=== PATIENT | male | born 2000 | race Caucasian/White ===

== ENCOUNTER 2022-06-15 12:00 | Emergency (ER) | payer OTHER ==
[~2022-06-15] VITALS: Ht 180.3 cm; Wt 74.8 kg
--- NOTE | 2022-06-15 12:40 | ED GU-Male ---
General Chief Complaint: - Reproductive Stated Complaint: SORE THROAT/CHEST PAIN/PAIN WHEN URINATING Nursing Triage Note: PT AMB TO TRIAGE WITH COMPLAINT OF BURNING ON URINATION. STATES STARTED A WEEK AGO. HAS BEEN SEEN TWICE, GIVEN DOXYCYCLINE. AND WAS SEEN AT [facility] AND TESTED NEGATIVE FOR STDS. HAS HAD A NEGATIVE URINE CULTURE ALSO. FINISHED DOXY WITH NO IMPROVEMENT IN SYMPTOMS. HAS ALSO HAD BODY ACHES, SORE THROAT, AND NIGHT SWEATS. Source: patient Exam Limitations: no limitations (CABRERA THIBODEAUX) History of Present Illness Date Seen by Provider: Jun 15, 2022 Time Seen by Provider: 12:25 Initial Comments Pradip Bennett is a 19 year old male who presents with sore throat, chest pain, and dysuria. The patient states the dysuria began on 06/07. On 06/09 the patient reports onset of a sore throat. On 06/14 patient reports onset of chest pain. He has been evaluated three times, at a walk-in care in [place], in [place], [place], and at the [facility]. He has been treated with doxycycline and cefuroxime with no improvement. Patient states the symptoms are worsening. He has been alternating tylenol and ibuprofen with little aid. P atient reports malaise, myalgia, swelling of his gums, aches, and diaphoresis. Denies cough, congestion, nausea, vomiting, abdominal pain, or hematuria. Patient states he has been tested for Flu, COVID, strep, mono, and STIs with negative results. Patient also states that he has had two UAs, both with negative results. The patient states his mother gave him two pills of Bactrim, and he states he noticed some improvement with this. Timing/Duration: week (onset over one week ago) Severity/Quality: moderate Location: urethral Radiation: none Activities at Onset: none Prior Genitourinary Problems: none Sexual [place] History: single partner Modifying Factors: Improves With Analgesics; Worsens With Urinating Associated Symptoms: dysuria, fever/chills (CABRERA THIBODEAUX) Allergies and Home Medications Allergies Coded Allergies: No Known Drug Allergies (Unverified , 06/15/22) Patient Home Medication List Home Medication List Reviewed: Yes (CABRERA THIBODEAUX) Cefuroxime Axetil (Cefuroxime) 500 Mg Tablet, 500 MG PO BID Prescribed by: BELEN CAMPO on 06/15/22 1411 Review of Systems Review of Systems Constitutional: chills, fever, malaise EENTM: mouth swelling (swelling of gums), throat pain Respiratory: no symptoms reported Cardiovascular: chest pain Gastrointestinal: no symptoms reported Genitourinary: dysuria, frequency; denies hematuria Musculoskeletal: muscle pain Skin: no symptoms reported Psychiatric/Neurological: No Symptoms Reported Endocrine: No Symptoms Reported Hematologic/Lymphatic: No Symptoms Reported (CABRERA THIBODEAUX) All Other Systemes Reviewed Negative Unless Noted: Yes (CABRERA THIBODEAUX) Past Kzzhrdo-Rzzcxw-Zkqawj Hx Patient Social History Tobacco Use?: No Use of E-Cig and/or Vaping dev: No Substance use?: No Alcohol Use?: Yes Alcohol Frequency: Once in a while Pt feels they are or have been: No (CABRERA THIBODEAUX) Past Medical History Surgeries: No (CABRERA THIBODEAUX) Physical Exam Vital Signs Vital Signs - First Documented 06/15/22 12:09 Temp 37.2 Pulse 105 Resp 22 B/P (MAP) 148/95 (112) Pulse Ox 96 O2 Delivery Room Air (BELEN PATRICIA MD) Vital Signs Capillary Refill : (CABRERA THIBODEAUX) Height, Weight, BMI Height: '" Weight: lbs. oz. kg; 23.00 BMI Method: General Appearance: WD/WN, no apparent distress HEENT: TMs normal, pharyngeal erythema, tonsillar exudate Neck: lymphadenopathy (R) (submandibular adenopathy), lymphadenopathy (L) (submandibular adenopathy) Cardiovascular: normal peripheral pulses, regular rate, rhythm, no murmur Respiratory: lungs clear, normal breath sounds, no respiratory distress, no accessory muscle use Gastrointestinal: non tender, soft Neurologic/Psychiatric: alert, normal mood/affect Skin: normal color, warm/dry Lymphatic: other (bilateral submandibular adenopathy) (CABRERA THIBODEAUX) Progress/Results/Core Measures Suspected Sepsis SIRS Temperature: Pulse: 105 Respiratory Rate: 22 Laboratory Tests 06/15/22 12:35: White Blood Count 9.9 Blood Pressure 148 /95 Mean: 112 Laboratory Tests 06/15/22 12:35: Creatinine 1.35H, Platelet Count 221, Total Bilirubin 0.3 (CABRERA THIBODEAUX) Results/Orders Lab Results Laboratory Tests Test 06/15/22 12:35 06/15/22 12:42 06/15/22 12:58 Range/Units White Blood Count 9.9 4.3-11.0 10^3/uL Red Blood Count 5.37 4.30-5.52 10^6/uL Hemoglobin 16.2 13.3-17.7 g/dL Hematocrit 49 40-54 % Mean Corpuscular Volume 91 80-99 fL Mean Corpuscular Hemoglobin 30 25-34 pg Mean Corpuscular Hemoglobin Concent 33 32-36 g/dL Red Cell Distribution Width 12.5 10.0-14.5 % Platelet Count 221 130-400 10^3/uL Mean Platelet Volume 10.0 9.0-12.2 fL Immature Granulocyte % (Auto) 0 % Neutrophils (%) (Auto) 72 42-75 % Lymphocytes (%) (Auto) 18 12-44 % Monocytes (%) (Auto) 8 0-12 % Eosinophils (%) (Auto) 1 0-10 % Basophils (%) (Auto) 1 0-10 % Neutrophils # (Auto) 7.1 1.8-7.8 10^3/uL Lymphocytes # (Auto) 1.8 1.0-4.0 10^3/uL Monocytes # (Auto) 0.8 0.0-1.0 10^3/uL Eosinophils # (Auto) 0.1 0.0-0.3 10^3/uL Basophils # (Auto) 0.1 0.0-0.1 10^3/uL Immature Granulocyte # (Auto) 0.0 0.0-0.1 10^3/uL Erythrocyte Sedimentation Rate 9 0-15 MM/HR Sodium Level 138 135-145 MMOL/L Potassium Level 4.4 3.6-5.0 MMOL/L Chloride Level 104 98-107 MMOL/L Carbon Dioxide Level 23 21-32 MMOL/L Anion Gap 11 5-14 MMOL/L Blood Urea Nitrogen 11 7-18 MG/DL Creatinine 1.35 H 0.60-1.30 MG/DL Estimat Glomerular Filtration Rate 76 BUN/Creatinine Ratio 8 Glucose Level 94 70-105 MG/DL Calcium Level 9.5 8.5-10.1 MG/DL Corrected Calcium 9.3 8.5-10.1 MG/DL Total Bilirubin 0.3 0.1-1.0 MG/DL Aspartate Amino Transf (AST/SGOT) 26 5-34 U/L Alanine Aminotransferase (ALT/SGPT) 26 0-55 U/L Alkaline Phosphatase 65 40-136 U/L C-Reactive Protein High Sensitivity 10.96 H 0.00-0.50 MG/DL Total Protein 7.8 6.4-8.2 GM/DL Albumin 4.3 3.2-4.5 GM/DL Monoscreen NEGATIVE NEGATIVE Influenza Type A (RT-PCR) Not Detected Not Detecte Influenza Type B (RT-PCR) Not Detected Not Detecte SARS-CoV-2 RNA (RT-PCR) Not Detected Not Detecte Urine Color YELLOW Urine Clarity CLEAR Urine pH 6.0 5-9 Urine Specific [place] 1.025 H 1.016-1.022 Urine Protein NEGATIVE NEGATIVE Urine Glucose (UA) NEGATIVE NEGATIVE Urine Ketones 1+ H NEGATIVE Urine Nitrite NEGATIVE NEGATIVE Urine Bilirubin NEGATIVE NEGATIVE Urine Urobilinogen 0.2 < = 1.0 MG/DL Urine Leukocyte Esterase NEGATIVE NEGATIVE Urine RBC (Auto) NEGATIVE NEGATIVE Urine RBC NONE /HPF Urine WBC RARE /HPF Urine Squamous Epithelial Cells NONE /HPF Urine Crystals NONE /LPF Urine Bacteria NEGATIVE /HPF Urine Casts NONE /LPF Urine Mucus NEGATIVE /LPF Urine Culture Indicated NO Group A Streptococcus Screen NEGATIVE NEGATIVE (BELEN PATRICIA MD) My Orders Orders - BELEN PATRICIA MD Cbc With Automated Diff (06/15/22 12:17) Comprehensive Metabolic Panel (06/15/22 12:17) Hs C Reactive Protein (06/15/22 12:17) Ua Culture If Indicated (06/15/22 12:17) Ed Iv/Invasive Line Start (06/15/22 12:17) Covid 19 Inhouse Test (06/15/22 12:18) Influenza A And B By Pcr (06/15/22 12:18) Monotest (06/15/22 12:53) Erythrocyte Sedimentation Rate (06/15/22 12:53) Rapid Strep A Screen (06/15/22 12:55) Lactated Ringers (Lr 1000 Ml Iv Solution (06/15/22 14:00) Ceftriaxone 1 Gm Pre-Mix (Rocephin 1 Gm (06/15/22 13:53) (BELEN PATRICIA MD) Medications Given in ED Current Medications Medications Dose Ordered Sig/Ida Route Start Time Stop Time Status Last Admin Dose Admin Lactated Ringer's 1,000 ml @ 0 mls/hr Q0M ONCE IV 06/15/22 14:00 06/15/22 14:01 DC 06/15/22 14:01 1,000 MLS/HR (BELEN PATRICIA MD) Vital Signs/I&O 06/15/22 06/15/22 12:09 14:58 Temp 37.2 Pulse 105 61 Resp 22 B/P (MAP) 148/95 (112) 126/74 Pulse Ox 96 99 O2 Delivery Room Air Room Air (BELEN PATRICIA MD) Vital Signs/I&O Capillary Refill : (CABRERA THIBODEAUX) Blood Pressure Mean: 112 Departure Impression Primary Impression: Pharyngitis Qualified Codes: J02.9 - Acute pharyngitis, unspecified Disposition: HOME, SELF-CARE Condition: Improved Departure-Patient Inst. Decision time for Depature: 14:07 (BELEN PATRICIA MD) Referrals: NO,LOCAL PHYSICIAN (PCP/Family) Primary Care Physician Patient Instructions: Mononucleosis, Sore Throat, Adult ED Add. Discharge Instructions: Continue your antibiotics but increase to 500 mg twice daily. You may take ibuprofen up to 600 mg every 6 hours and/or Tylenol (acetaminophen) up to 1000 mg every 6 hours as needed for pain. The exact cause of your pharyngitis is uncertain. It may be that you have mononucleosis that is too early to test positive on the blood work. You may also have a different strain of strep throat that is not detected by the rapid strep test. A culture from your throat swab is pending. Results should be available in about 48 hours. You may have the [facility] review those results later in the week to help direct care. Assume you are contagious unless instructed otherwise. Avoid close contact with others and do not share food or drink. Return to care if you are having worsening symptoms despite following these instructions. All discharge instructions reviewed with patient and/or family. Voiced understanding. Scripts Cefuroxime Axetil (Cefuroxime) 500 Mg Tablet 500 MG PO BID, #14 TAB Prov: BELEN PATRICIA MD 06/15/22 Medical Student Attestation and Attending Note: I have personally interviewed and examined this patient along with Marylou Thibodeaux, MS 4. I have reviewed student documentation including history, physical, and assessments. I agree with the documentation except where otherwise noted. Exam: General: Alert, oriented, no acute distress, well developed HEENT: Normocephalic and atraumatic, marked erythema of the tonsils with copious white ulcerative patches and edema Neck: Anterior cervical lymphadenopathy Heart: Regular rate and rhythm without murmur Lungs: Clear to auscultation bilaterally with normal effort Abdomen: Soft, nontender, nondistended, normal bowel sounds Neuropsych: Alert, oriented, no focal deficits Skin: Warm and dry without rashes Work-up suggested patient was a bit hypovolemic. A liter of IV fluid was infused. No specific etiology for his pharyngitis was identified. We will continue on antibiotic therapy but increase his dose from 250 mg cefuroxime to 500 mg cefuroxime twice daily. Backup throat culture is pending. I did inform patient that mononucleosis testing often does not show up positive until illness has been present for a couple of weeks. See discharge instructions for further discussion. (BELEN PATRICIA MD) Copy Copies To 1: SAMANTHA MCFARLANE MDCABRERA Jun 15, 2022 12:40 BELEN PATRICIA MD Jun 15, 2022 14:10
[2022-06-15 12:47] LABS: BASOPHILS # (AUTO) 0.1 10^3/uL (0.0-0.1); BASOPHILS % (AUTO) 1 % (0-10); EOSINOPHILS # (AUTO) 0.1 10^3/uL (0.0-0.3); EOSINOPHILS % (AUTO) 1 % (0-10); HEMATOCRIT 49 % (40-54); HEMOGLOBIN 16.2 g/dL (13.3-17.7); LYMPHOCYTES # (AUTO) 1.8 10^3/uL (1.0-4.0); LYMPHOCYTES % (AUTO) 18 % (12-44); MEAN CORPUSCULAR HEMOGLOBIN 30 pg (25-34); MEAN CORPUSCULAR HGB CONC 33 g/dL (32-36); MEAN CORPUSCULAR VOLUME 91 fL (80-99); MONOCYTES # (AUTO) 0.8 10^3/uL (0.0-1.0); MONOCYTES % (AUTO) 8 % (0-12); NEUTROPHILS # (AUTO) 7.1 10^3/uL (1.8-7.8); NEUTROPHILS % (AUTO) 72 % (42-75); PLATELET COUNT 221 10^3/uL (130-400); WHITE BLOOD COUNT 9.9 10^3/uL (4.3-11.0)
[2022-06-15 12:49] LABS: BILIRUBIN,URINE NEGATIVE (NEGATIVE); CLARITY,URINE CLEAR; COLOR,URINE YELLOW; GLUCOSE, URINE (UA) NEGATIVE (NEGATIVE); KETONES,URINE 1+ (NEGATIVE); LEUKOCYTE ESTERASE ,URINE NEGATIVE (NEGATIVE); NITRITE,URINE NEGATIVE (NEGATIVE); PROTEIN,URINE NEGATIVE (NEGATIVE)
[2022-06-15 12:55] LABS: ALBUMIN 4.3 GM/DL (3.2-4.5); POTASSIUM 4.4 MMOL/L (3.6-5.0)
[2022-06-15 12:56] LABS: CALCIUM 9.5 MG/DL (8.5-10.1)
[2022-06-15 12:58] LABS: TOTAL PROTEIN 7.8 GM/DL (6.4-8.2)
[2022-06-15 13:00] LABS: BILIRUBIN,TOTAL 0.3 MG/DL (0.1-1.0)
[2022-06-15 13:01] LABS: CREATININE SERUM 1.35 MG/DL (0.60-1.30)
[2022-06-15 13:09] LABS: BACTERIA,URINE NEGATIVE /HPF; WBC,URINE RARE /HPF
[2022-06-15] MEDS ORDERED: cefTRIAXone 1 GM PRE-MIX 50 ML IV STA (13:53)
[2022-06-15] MEDS ORDERED: LACTATED RINGERS 1,000 ML IV ONE (14:00)
[2022-06-15] MEDS ORDERED: CEFU500T63 PO (14:11)
[2022-06-15 14:58] VITALS: BP 126/74
== END 2022-06-15 14:58 | disposition home or self-care (01) ==
LOC: ER 12:04
DX: J02.9 Acute pharyngitis, unspecified (principal); Z20.822 Contact with and (suspected) exposure to COVID-19
CPT/HCPCS: 36415; 80053; 81000; 85025; 85652; 86141; 86308; 87430; 87636; 96361; 96365